=== PATIENT | female | born 1960 | race Caucasian/White ===

== ENCOUNTER 2018-09-10 19:40 | Emergency (ER) | payer BC, SELFPAY ==
[2018-09-10 19:44] VITALS: BP 107/70; PULSE 79; RESP 14; TEMP 36.8; O2SAT 98
--- NOTE | 2018-09-10 19:59 | ED.GENADUL_ITS ---
Discharge Plan Disposition Patient Disposition: HOME Condition: Good Discharge Details Chief Complaint: Orthopedic Clinical Impression: Contusion of knee, right Primary Care Provider: Myriam Benson ED Provider: Chetan Merrill Home Meds and New Rx's Prescriptions: Continue citalopram [Celexa] 10 MG tablet 10 mg PO DAILY RF: 0 Discharge Instructions Instructions: Contusion in Adults (ED) Discharge Data Discharge Physician: Chetan Merrill Medical Decision Making 58 yo female comes in with right knee pain after she states she had a mechanical fall yesterday, denies hitting her head or having loc and denies any precediing symptoms, states it was purely mechanical. She has right antierior knee pain, no evidence of tendon injury or ligamentous injury on exam. I recommended an xray to eval for fx but pt declined this at this time. She is going to f/u with her pcp if pain continues Differential Diagnosis contusion, sprain, strain HPI General Mode of arrival: ambulatory . Date/Time Provider Initiated Documentation: 09/10/18 19:41 . Limitations to Documentation: no limitations . Information obtained by: patient . History of Present Illness 58 year old F presents to the emergency department with the chief complaint of right knee pain, described as moderate, with intensity rated at 4. Quality is described as stabbing and aching, and is localized to the right and lower extremity. Patient extremity. Patient started experiencing this day(s) (1) No relieving factors improve symptom(s), No exacerbating factors reported . Patient notes no other symptoms.. Related Data Home Medications Medication Instructions Recorded Confirmed citalopram [Celexa] 10 mg PO DAILY tab-cap 04/06/17 09/10/18 Allergies Allergy/AdvReac Type Severity Reaction Status Date / Time codeine Allergy Unknown Unverified 09/10/18 19:50 tetracycline Allergy Unknown Unverified 09/10/18 19:50 General Stated Complaint: Orthopedic ANA: 4 Review of Systems Review of Systems All systems reviewed & are unremarkable except as noted in HPI and below Constitutional Denies chills and Denies fever(s) ENT Denies change in voice Cardiovascular Denies chest pain and Denies dyspnea Respiratory Denies dyspnea Gastrointestinal Denies abdominal pain, Denies nausea and Denies vomiting Musculoskeletal Denies joint swelling Integumentary/Breasts Denies rash Psychiatric Denies depression Allergic/Immunologic Reports urticaria [facility] Medical History Depression Shoulder tendinitis Social History Smoking/Tobacco Use Status: Former Tobacco Use Surgical History Colonoscopy - MAC (04/12/17) Exam Const General: no acute distress Orientation: alert HENMT Head: normal to inspection Ears: external ears normal General nose exam: external nose normal Mouth: moist mucous membranes Eyes General: appearance normal, both eyes and all related structures Neck Neck: normal visual inspection Resp Effort & Inspection: normal respiratory effort and able to speak in complete sentences Cardio Rate: regular rate Skin General skin exam: no rashes or lesions noted Neuro General: alert and oriented x3 Extrem General: normal to inspection, normal capillary refill and other (anterior right knee tendreness, full rom, no calf pain ankle pain or foot pain, able to walk with limp due to pain in knee, no ligamentous laxity on exam) Psych Mental Status: mental status grossly normal Course Vital Signs Temperature 36.8 C 09/10/18 19:44 Pulse 79 09/10/18 19:44 Respiratory Rate 14 09/10/18 19:44 Blood Pressure 107/70 09/10/18 19:44 Pulse Oximetry 98 09/10/18 19:44 Temperature 36.8 C 09/10/18 19:44 Temperature Source Skin 09/10/18 19:44 Pulse 79 09/10/18 19:44 Respiratory Rate 14 09/10/18 19:44 Respiratory Effort 09/10/18 19:53 Blood Pressure 107/70 09/10/18 19:44 Pulse Oximetry 98 09/10/18 19:44 Oxygen Delivery Method Room Air 09/10/18 19:44 Oxygen Flow Rate 0 09/10/18 19:44
== END 2018-09-10 20:21 | disposition home or self-care (01) ==
LOC: ER 20:11
PROVIDERS: Emergency Provider Emergency Medicine; PCP Nurse Practitioner Family
DX: S80.01XA Contusion of right knee, initial encounter (principal); W01.0XXA Fall on same level from slipping, tripping and stumbling without subsequent striking against object, initial encounter
CPT/HCPCS: 99282

== ENCOUNTER → 2019-03-08 15:33 | Outpatient (REF) | payer BC, SELFPAY ==
[2019-03-08 21:33] LABS: HCT 41.3 % (36.0-46.0); HGB 13.5 g/dL (12.0-15.5); Mean Corp. HGB Concentration 32.7 g/dL (32.0-36.0); Mean Corpuscular Hemoglobin 29.2 pg (27.0-33.0); Mean Corpuscular Volume 89.4 fL (80-95); Mean Platelet Volume 10.1 fL (8.0-11.0); Platelet Count 403 x1000/uL (130-400); RBC 4.62 m/cumm (4.00-5.20); RBC Distribution Width 12.3 % (11.7-14.6); White Blood Cell Count 5.16 k/cumm (4.4-10.8)
[2019-03-08 21:59] LABS: Iron 53 ug/dL (50-175); Total Iron Binding Capacity 280 ug/dL (250-450); Transferrin Sat 19 % (15-50)
[2019-03-08 22:29] LABS: ALT 30 U/L (12-78); AST 21 U/L (15-37); Anion Gap 9.9 mmol/L (3-11); BUN 17 mg/dL (7-18); CO2 30.1 mmol/L (21.0-32.0); CREATININE 0.68 mg/dL (0.55-1.02); Calcium 9.3 mg/dL (8.5-10.1); Chloride 102 mmol/L (98-107); Cholesterol 277 mg/dL (50-200); Glucose 73 mg/dL (70-100); HDL Cholesterol 62 mg/dL (40-60); LDL CHOLESTEROL 190 mg/dL (<100); Sodium 142 mmol/L (136-145); TSH (W/Ref FT4) 1.13 uIU/mL (0.358-3.74); Triglyceride 82 mg/dL (30-150); Vitamin B12 751 pg/mL (193-986)
[2019-03-09 06:12] LABS: Vitamin D 25 Total 23.6 ng/ml (30-100)
[2019-03-10 09:41] LABS: Cyclic Citrullinated Peptide <2.5 U/mL (<5.0); Rheumatoid Factor 358 IU/mL (<12.5)
[2019-03-10 12:12] LABS: ANA Interpretation Positive (NEGAT); ANA Titer Pattern SEE COMMENTS
[2019-03-14 13:19] LABS: Sm (Smith) Ab, IgG 3.4 Units (<20)
[2019-03-14 13:21] LABS: dsDNA Ab, IgG <12.3 IU/mL (<30)
== END ==
LOC: NCHCN 15:33
PROVIDERS: PCP Nurse Practitioner Family; Visit Provider Nurse Practitioner Family
DX: E04.9 Nontoxic goiter, unspecified (principal); L65.9 Nonscarring hair loss, unspecified; R53.83 Other fatigue; Z00.00 Encounter for general adult medical examination without abnormal findings; R79.89 Other specified abnormal findings of blood chemistry
CPT/HCPCS: 80048; 80061; 82306; 83721; 85027; 86200; 82607; 83540; 83550; 84443; 84450; 84460; 86038; 86225; 86235; 86431

== ENCOUNTER 2019-04-06 17:50 | Outpatient (REF) | payer BC, SELFPAY ==
[2019-04-08 12:24] LABS: Myeloperoxidase Ab IgG <0.2 U; Proteinase 3 Ab (PR3) <0.2 U
[2019-04-09 14:12] LABS: Testosterone, Total 12 ng/dL (8-60)
[2019-04-10 08:36] LABS: DHEA Sulfate 58 ug/dl (30-182)
[2019-04-10 13:47] LABS: Lyme Ab w Rflx to Lyme Confirm Negative
== END 2019-04-06 18:10 ==
LOC: NCHCN 17:50
PROVIDERS: PCP Nurse Practitioner Family; Visit Provider Nurse Practitioner Family
DX: R53.83 Other fatigue (principal); L65.9 Nonscarring hair loss, unspecified; R79.89 Other specified abnormal findings of blood chemistry
CPT/HCPCS: 82627; 84403; 82626; 83516; 86618

== ENCOUNTER 2019-05-15 01:38 | Outpatient (CLI) | payer BC, SELFPAY ==
--- NOTE | 2019-05-15 16:59 | DI.MAMMO_ITS ---
SYMPTOM/DIAGNOSIS: SCREENING, Z12.31 MAMMOGRAMS: Mammograms were interpreted according to the usual protocol including computer analysis with CAD system, tomosynthesis and C view imaging. Comparison is made with 2017. The breasts are composed of heterogeneously dense fibroglandular tissue. Breast density, Category C. No suspicious masses or suspicious microcalcifications are seen. There has been no significant change. IMPRESSION: Category 1, negative mammogram. Yearly screening mammography is recommended. [facility] ASSESSMENT OF FINDINGS: Negative. Category 1. Patient will receive a letter notifying them of these results. Bi-RADS category C. The breasts are heterogeneously dense, which may obscure small masses.
== END 2019-05-15 01:58 ==
PROVIDERS: PCP Nurse Practitioner Family; Visit Provider Nurse Practitioner Family
DX: Z12.31 Encounter for screening mammogram for malignant neoplasm of breast (principal)
CPT/HCPCS: 77063; 77067

== ENCOUNTER → 2020-03-15 09:43 | Outpatient (REF) | payer BC, SELFPAY ==
[2020-03-15 21:11] LABS: ALT 29 U/L (14-59); AST 27 U/L (15-37); Calculated LDL 220 mg/dL (<100); Cholesterol 293 mg/dL (<200); HDL Cholesterol 59 mg/dL (40-60); Triglyceride 73 mg/dL (<150)
== END ==
LOC: NCHCN 09:43
PROVIDERS: PCP Nurse Practitioner Family; Visit Provider Nurse Practitioner Family
DX: E78.5 Hyperlipidemia, unspecified (principal)
CPT/HCPCS: 80061; 84450; 84460

== ENCOUNTER 2020-04-29 10:28 | Outpatient (CLI) | payer BC, SELFPAY ==
[2020-04-30 14:07] LABS: COVID-19 RT-PCR UVMMC Result Negative (Negative)
== END 2020-04-29 10:48 ==
PROVIDERS: PCP Nurse Practitioner Family; Visit Provider Nurse Practitioner Family
DX: Z11.59 Encounter for screening for other viral diseases (principal)
CPT/HCPCS: U0003

== ENCOUNTER → 2022-11-09 02:12 | Outpatient (CLI) | payer BC, SELFPAY ==
--- NOTE | 2022-11-09 16:15 | DI.MAMMO_ITS ---
Exam(s) MAMMO SCREENING EXAM: MAMMO SCREENING CLINICAL HISTORY: SCREENING FOR BREAST CANCER Z12.39. TECHNIQUE: Bilateral full field digital CC and MLO mammographic images were obtained with 3D tomosyn thesis and utilizing computer aided detection (CAD). COMPARISON: Prior mammograms were reviewed. FINDINGS: There has been no significant change in the appearance and distribution of the fibroglandular tissue. There are no new spiculated masses nor malignant appearing microcalcification groups. There is no significant architectural distortion nor skin thickening-retraction. IMPRESSION: No radiographic evidence of malignancy. BI-RADS Category 1 - Negative Breast Density - Category C - Heterogeneously dense Breast density Category C or D implies that the patient has dense breast tissue. Dense breast tissue can make it harder to find cancer on a mammogram. Dense breast tissue is also associated with an incr eased risk of breast cancer. This information about the result of the mammogram report was provided to the patient to raise their awareness. Use this report when you speak with the patient about their risks for breast cancer, which includes their family history. At that time, you may recommend additional screening tests (Ultrasoun d or MRI) as these tests may add significant information. A negative radiographic report should not delay biopsy if a dominant or clinically suspicious mass is present. Up to ten percent of cancers are not identified on mammography. A negative report may reinforce clinical impression. Adenosis and dense breasts may obscure an underlying neoplasm. False positive reports average 6 to 10%. Patient will receive a letter notifying them of these results.
== END ==
PROVIDERS: PCP Nurse Practitioner Family; Visit Provider Nurse Practitioner Family
DX: Z12.31 Encounter for screening mammogram for malignant neoplasm of breast (principal)
CPT/HCPCS: 77063; 77067

== ENCOUNTER 2023-10-27 13:14 | Outpatient (REF) | payer BC, SELFPAY ==
[2023-10-27 14:57] LABS: HCT 40.3 % (36.0-46.0); HGB 13.1 g/dL (11.2-15.7); MCH 29.4 pg (27.0-33.0); MCHC 32.5 % (32.0-36.0); MCV 90 fL (80-95); MPV 10.5 fL (8.0-11.0); Platelet Count 348 10^3/uL (130-400); RBC 4.46 10^6/uL (3.93-5.22); RDW 11.9 % (11.7-14.6); RDW-SD 39.6 fL; WBC 6.56 10^3/uL (4.4-10.8)
[2023-10-27 15:20] LABS: ALT 46 U/L (14-59); AST 28 U/L (15-37); Albumin 3.8 g/dL (3.4-5.0); Alkaline Phosphatase 89 U/L (46-116); Anion Gap 8.1 mmol/L (3-11); BUN 17 mg/dL (7-18); Bilirubin, Total 0.3 mg/dL (0.2-1.0); CO2 29.9 mmol/L (21.0-32.0); CREATININE 0.6 mg/dL (0.55-1.02); Calcium 9.2 mg/dL (8.5-10.1); Calculated LDL 88 mg/dL (<100); Chloride 104 mmol/L (98-107); Cholesterol 157 mg/dL (<200); Estimated GFR 100.17 (mL/min/1.73m2); Glucose 87 mg/dL (74-106); HDL Cholesterol 61 mg/dL (40-60); Potassium 4.1 mmol/L (3.5-5.1); Sodium 142 mmol/L (136-145); Total Protein 7.3 g/dL (6.4-8.2); Triglyceride 43 mg/dL (<150)
== END 2023-10-27 13:15 | disposition home or self-care (01) ==
LOC: NCHCN 13:14
PROVIDERS: PCP Nurse Practitioner Family; Visit Provider Nurse Practitioner Family
DX: Z00.00 Encounter for general adult medical examination without abnormal findings (principal)
CPT/HCPCS: 80053; 80061; 85027

== ENCOUNTER → 2024-06-30 16:26 | Outpatient (CLI) | payer MEDICARE, SELFPAY ==
--- NOTE | 2024-06-30 | DI.RAD_ITS ---
Exam(s) XR HIP PELVIS ADULT BL EXAM: XR HIP PELVIS ADULT BL CLINICAL HISTORY: HIP PAIN M25.559. TECHNIQUE: 2D digital imaging was performed of the pelvis and bilateral hips. Three images were obt ained. AP pelvis and lateral views of both hips were obtained. COMPARISON: No exams were available for comparison FINDINGS: BONES: No acute fracture is present. No bony destructive lesion is seen. JOINTS: No dislocation present. In the right hip there is mild joint space narrowing. Osteophytes ar e seen in both the acetabulum and the femoral head. In the left hip there is mild joint space narrow ing and spurring present. SOFT TISSUE: Normal. IMPRESSION: Degenerative changes of the hips, right greater than left. DATA REPOSITORY: RADIATION DOSE DELIVERED:
--- NOTE | 2024-06-30 | DI.RAD_ITS ---
Exam(s) XR LUMBAR SPINE COMPLETE EXAM: XR LUMBAR SPINE COMPLETE CLINICAL HISTORY: LOW BACK PAIN M54.50. TECHNIQUE: 2D digital imaging was performed of the lumbar spine. Five images were obtained. AP, la teral, right oblique, left oblique and L5-S1 spot views were obtained. COMPARISON: No exams were available for comparison FINDINGS: BONES: No fracture or destructive lesion. There are endplate osteophytes from L3-4 through L5-S1. The re are mild degenerative changes of the facets at L5-S1. DISKS: Disc space narrowing and vacuum discs are seen at L4-5 and L5-S1. ALIGNMENT: Lumbar spinal alignment is within normal limits. No spondylolysis or spondylolisthesis. SOFT TISSUE: Normal. IMPRESSION: Moderate degenerative changes seen at L4-5 and L5-S1. DATA REPOSITORY: RADIATION DOSE DELIVERED:
== END ==
PROVIDERS: PCP Nurse Practitioner Family; Visit Provider Nurse Practitioner Family
DX: M25.551 Pain in right hip (principal); M25.552 Pain in left hip; M54.50 Low back pain, unspecified; M16.11 Unilateral primary osteoarthritis, right hip; M16.12 Unilateral primary osteoarthritis, left hip; M51.37 Other intervertebral disc degeneration, lumbosacral region
CPT/HCPCS: 73521; 72110

== ENCOUNTER → 2024-07-13 08:54 | Outpatient (BNVA) | payer MEDICARE, SELFPAY | PROVIDERS: PCP Nurse Practitioner Family; Referring Provider Nurse Practitioner Family; Visit Provider Student in an Organized Health Care Education/Training Program | DX: M16.0 Bilateral primary osteoarthritis of hip (principal); M25.551 Pain in right hip | CPT/HCPCS: 99203 ==

== ENCOUNTER 2024-09-14 10:11 | Emergency (ER) | payer MEDICARE, SELFPAY ==
[2024-09-14 10:14] VITALS: BP 109/63; PULSE 82; RESP 18; TEMP 36.4; O2SAT 94
--- NOTE | 2024-09-14 10:28 | ED.GENADUL_ITS ---
Discharge Plan Disposition Patient Disposition: Home Discharge Details Clinical Impression: COVID-19 virus infection Primary Care Provider: Lolis Zuñiga ED Provider: Brain Mancera Home Meds and New Rx's Prescriptions: Continued gabapentin 100 mg capsule 100 mg PO BID rosuvastatin 40 mg tablet 40 mg PO DAILY citalopram [Celexa] 10 mg tablet 20 mg PO DAILY Discharge Instructions Instructions: COVID-19 ED Additional Instructions: You are seen in the emergency department for your weakness and COVID infection. Your oxygen saturation is reassuring. Based on the duration of times since your symptoms began there is no indication for any antiviral treatments. Please follow-up with primary care provider next week. Please return to the emergency department if you develop vomiting that does not stop or if you pass out. Discharge Data Discharge Date/Time-TO BE ENTERED AT DEPARTURE: 09/14/24 12:56 HPI General Date/Time Provider Initiated Documentation: 09/14/24 10:28 . HPI Narrative: MDM This is an overall very well appearing normothermic and not tachycardic 64-year-old female with recent COVID test but no evidence of acute respiratory failure no hypoxia to suggest benefit from dexamethasone. Patient appears quite well-hydrated however will obtain labs to ensure that she is not dehydrated. Will connect with care management as she is reportedly had difficulty making food since she feels weak at home. Will ensure that she can ambulate and if she has difficulty ambulating will reach out to physical therapy. Given no chest pain no tachycardia and no hypoxia my suspicion is low for DVT so I did not send a D-dimer. Clear lungs and equal breath sounds so my suspicion for superimposed bacterial pneumonia is low however given duration of time since symptoms began will obtain a portable chest x-ray. No chest pain to suggest ACS so did not obtain ECG. No trauma and equal breath sounds without pneumothorax. Soft nontender abdomen so I am not concern for any intra-abdominal infection such as appendicitis or diverticulitis. No pain or proportion to suggest necrotizing soft tissue infection. 11:04 AM Patient was able to ambulate in the emergency department so we will defer physical therapy consult. 12:23 PM CBC lacks anemia thrombocytopenia and leukocytosis. Reassuring comprehensive metabolic panel with no acute electrolyte abnormalities. No SNEHAL. Chest x-ray with no acute cardiopulmonary process per radiology. Linda from [facility] is meeting with patient. 12:30 PM I spoke with Vee from care management who met with the patient. Patient is eating food. Vee shared that she had access to food. I advised patient of her reassuring laboratory evaluation we discussed return indications including inability to tolerate p.o. any shortness of breath or syncope. I advised PCP follow-up next week. She understood her return indications and was discharged with empiric trial of expectant outpatient management. HPI This is a previously healthy 64-year-old female with recent COVID-positive test. Patient reports that she initially tested positive for COVID 11 days ago. She reports that she received 2 vaccines originally against COVID. She reports she has had difficulty eating and drinking as she lives alone. She has been attempting treatment at home with [facility]. She denies any abdominal pain. She denies chest pain. She is reports that she has had some sweats at night but no unintentional weight loss. She denies routine tobacco, ethanol, and illicits. She has not been nauseous nor vomiting. She denies abdominal pain. Exam General: Well-appearing in no acute distress speaking in complete sentences. Head: Normocephalic, atraumatic. Eye: Extraocular eye movements intact. No conjunctival injection. No scleral icterus. Ear, nose, mouth, throat: Grossly normal inspection. Normal voice, handling secretions normally. Neck: Trachea midline. Cardiovascular: Well-perfused distal extremities. Regular rate and rhythm Respiratory: Nonlabored respiration. Clear lungs bilaterally Gastrointestinal: Nondistended abdomen. Soft nontender. No rebound. No guarding. Musculoskeletal: No edema. Moving all 4 extremities spontaneously. Skin: Normal for age and race, grossly normal temperature and turgor. No acute rash. Neurologic: Alert and appropriate, no apparent acute deficits. GCS 15. Psychiatric: Mood and manner are appropriate. Grooming and personal hygiene are appropriate. Related Data Home Medications ?Medication ?Instructions ?Recorded ?Confirmed citalopram 10 mg tablet (Celexa) 20 mg PO DAILY 07/13/24 09/14/24 gabapentin 100 mg capsule 100 mg PO BID 07/13/24 09/14/24 rosuvastatin 40 mg tablet 40 mg PO DAILY 07/13/24 09/14/24 Allergies Allergy/AdvReac Type Severity Reaction Status Date / Time codeine Allergy Unknown Unknown Unverified 09/14/24 10:22 tetracycline Allergy Unknown Unknown Unverified 09/14/24 10:22 General Stated Complaint: GenMedical ANA: 3 Course Vital Signs Vital signs: Vital Signs Temperature 36.4 C 09/14/24 10:14 Pulse 82 09/14/24 10:14 Respiratory Rate 18 09/14/24 10:14 Blood Pressure 109/63 09/14/24 10:14 Pulse Oximetry 94 09/14/24 10:14 Temperature 36.4 C 09/14/24 10:14 Temperature Source Tympanic 09/14/24 10:14 Pulse 82 09/14/24 10:14 Respiratory Rate 18 09/14/24 10:14 Blood Pressure 109/63 09/14/24 10:14 Blood Pressure Position Supine 09/14/24 10:14 Pulse Oximetry 94 09/14/24 10:14 Oxygen Delivery Method Room Air 09/14/24 10:14 Oxygen Flow Rate 0 09/14/24 10:14 Pain Level 0 09/14/24 10:14 Medical Decision Making Quality:SDOH Health Related Social Needs: No Data to Display PFSH All Active Problems (Updated 09/14/24 @ 12:24 by Brain Mancera MD) COVID-19 virus infection (Acute) Bilateral primary osteoarthritis of hip (Acute) Medical History (Updated 09/14/24 @ 12:24 by Brain Mancera MD) Depression Shoulder tendinitis Surgical History (Updated 04/12/17 @ 10:27 by Christina Burr) Colonoscopy - MAC (04/12/17) Social History Smoking/Tobacco Use Status: Former Tobacco Use Smoking risk assessment performed?: Yes Drug use: Never Do you feel safe in your relationship?: Yes
[2024-09-14 11:01] VITALS: RESP 16
--- NOTE | 2024-09-14 11:20 | DI.RAD_ITS ---
Exam(s) XR CHEST 2V PA LATERAL EXAM: XR CHEST 2V PA LATERAL CLINICAL HISTORY: Weakness TECHNIQUE: 2D digital imaging was performed of the chest. Two images were obtained. PA and lateral views were obtained. COMPARISON: No exams were available for comparison FINDINGS: MEDIASTINUM: Normal. HEART: Normal. PULMONARY VASCULATURE: Normal. LUNGS: Clear. PLEURAL SPACE: No pleural effusion or pneumothorax. BONE:Within normal limits for the patient's age. OTHER FINDINGS:Normal. IMPRESSION: No acute pulmonary findings. DATA REPOSITORY: RADIATION DOSE DELIVERED:
[2024-09-14 11:25] LABS: Abs Immature Grans 0.01 10^3/uL (0.0-0.06); Absolute Basophil Count 0.03 10^3/uL (0.0-0.2); Absolute Eosinophil Count 0.11 10^3/uL (0.0-0.7); Absolute Monocyte Count 0.49 10^3/uL (0.1-0.8); Absolute Neutrophil Count 2.28 10^3/uL (1.2-6.7); Basophils % 0.6 %; Eosinophils % 2.3 %; HCT 45.2 % (36.0-46.0); HGB 14.6 g/dL (11.2-15.7); Immature Grans % 0.2 %; Lymphocytes % 39.4 %; MCH 29.3 pg (27.0-33.0); MCHC 32.3 % (32.0-36.0); MCV 91 fL (80-95); MPV 9.6 fL (8.0-11.0); Monocytes % 10.2 %; Neutrophils % 47.3 %; Platelet Count 389 10^3/uL (130-400); RBC 4.99 10^6/uL (3.93-5.22); RDW 11.9 % (11.7-14.6); RDW-SD 39.4 fL; WBC 4.82 10^3/uL (4.4-10.8)
[2024-09-14 12:00] LABS: Anion Gap 8.8 mmol/L (3-11); BUN 15 mg/dL (7-18); CO2 30.2 mmol/L (21.0-32.0); CREATININE 0.6 mg/dL (0.55-1.02); Calcium 9.3 mg/dL (8.5-10.1); Chloride 106 mmol/L (98-107); Estimated GFR 99.55 (mL/min/1.73m2); Glucose 80 mg/dL (74-106); Potassium 4.5 mmol/L (3.5-5.1); Sodium 145 mmol/L (136-145)
[2024-09-14 12:40] VITALS: BP 144/77; PULSE 77; RESP 18; O2SAT 99
== END 2024-09-14 12:56 | disposition home or self-care (01) ==
PROVIDERS: Emergency Provider Emergency Medicine; PCP Nurse Practitioner Family
DX: U07.1 COVID-19 (principal); Z87.891 Personal history of nicotine dependence
CPT/HCPCS: 36415; 80048; 99284; 71046; 85025

== ENCOUNTER 2025-01-01 01:14 | Outpatient (CLI) | payer OTHER, SELFPAY ==
[2025-01-01 16:28] LABS: HCT 39.4 % (36.0-46.0); HGB 12.7 g/dL (11.2-15.7); MCH 29.3 pg (27.0-33.0); MCHC 32.2 % (32.0-36.0); MCV 91 fL (80-95); MPV 9.2 fL (8.0-11.0); Platelet Count 380 10^3/uL (130-400); RBC 4.34 10^6/uL (3.93-5.22); RDW 12.2 % (11.7-14.6); RDW-SD 40.6 fL; WBC 6.21 10^3/uL (4.4-10.8)
[2025-01-01 17:03] LABS: Anion Gap 4.8 mmol/L (3-11); BUN 21 mg/dL (7-18); CO2 31.2 mmol/L (21.0-32.0); CREATININE 0.9 mg/dL (0.55-1.02); Calcium 9.3 mg/dL (8.5-10.1); Chloride 106 mmol/L (98-107); Estimated GFR 70.95 (mL/min/1.73m2); Glucose 92 mg/dL (74-106); Potassium 3.9 mmol/L (3.5-5.1); Sodium 142 mmol/L (136-145)
== END 2025-01-01 01:15 | disposition home or self-care (01) ==
LOC: LBO 01:14
PROVIDERS: PCP Nurse Practitioner Family; Visit Provider Student in an Organized Health Care Education/Training Program
DX: M16.11 Unilateral primary osteoarthritis, right hip (principal); Z01.818 Encounter for other preprocedural examination
CPT/HCPCS: 36415; 80048; 85027

== ENCOUNTER 2025-01-01 15:27 | Outpatient (CLI) | payer OTHER, SELFPAY ==
--- NOTE | 2025-01-01 16:02 | DI.RAD_ITS ---
Exam(s) XR PELVIS AP EXAM: XR PELVIS AP CLINICAL HISTORY: PRE OP RIGHT CHIDI. TECHNIQUE: 2D digital imaging was performed.One images were obtained. COMPARISON: CR XR HIP PELVIS ADULT BL from 06/30/2024 FINDINGS: BONES: No acute fracture is present. No bony destructive lesion is seen. JOINTS: No dislocation present. There are degenerative changes seen in the hips bilaterally character ized by joint space narrowing and osteophytes. The findings are most marked in the right hip. The s acroiliac joints are intact as is the symphysis pubis. SOFT TISSUE: Normal. IMPRESSION: Degenerative changes in the hips, right greater than left. DATA REPOSITORY: RADIATION DOSE DELIVERED:
== END 2025-01-01 15:28 | disposition home or self-care (01) ==
LOC: DIORS 15:27
PROVIDERS: PCP Nurse Practitioner Family; Referring Provider Nurse Practitioner Family; Visit Provider Physician Assistant
DX: M16.0 Bilateral primary osteoarthritis of hip (principal)
CPT/HCPCS: 72170

== ENCOUNTER 2025-05-07 02:22 | Outpatient (CLI) | payer MEDICARE, SELFPAY ==
[2025-05-07 16:52] LABS: HGB 12.2 g/dL (11.2-15.7); MCH 29.1 pg (27.0-33.0); MCHC 32.1 % (32.0-36.0); MCV 91 fL (80-95); Platelet Count 411 10^3/uL (130-400); RBC 4.19 10^6/uL (3.93-5.22); RDW 11.9 % (11.7-14.6); RDW-SD 39.2 fL; WBC 6.78 10^3/uL (4.4-10.8)
[2025-05-07 17:38] LABS: Anion Gap 4.7 mmol/L (3-11); BUN 23 mg/dL (7-18); CO2 31.3 mmol/L (21.0-32.0); CREATININE 0.9 mg/dL (0.55-1.02); Chloride 104 mmol/L (98-107); Estimated GFR 70.95 (mL/min/1.73m2); Glucose 104 mg/dL (74-106); Potassium 4.4 mmol/L (3.5-5.1); Sodium 140 mmol/L (136-145)
== END 2025-05-07 02:23 | disposition home or self-care (01) ==
LOC: LBO 02:22
PROVIDERS: PCP Nurse Practitioner Family; Visit Provider Student in an Organized Health Care Education/Training Program
DX: M16.11 Unilateral primary osteoarthritis, right hip (principal); Z01.818 Encounter for other preprocedural examination
CPT/HCPCS: 36415; 80048; 85027

== ENCOUNTER 2025-05-15 05:51 | Day surgery (SDC) | payer MEDICARE, SELFPAY ==
[2025-05-15] VITALS (27 sets, daily range): BP systolic 86–139; BP diastolic 39–75; PULSE 59–79; RESP 7–27; TEMP 36.1–36.6; O2SAT 94–100; BMI 23.8
[2025-05-15] MEDS: Celecoxib 200 MG CAP 400 MG PO (06:35)
[2025-05-15] MEDS: Acetaminophen 500 MG TAB 1000 MG PO (06:35)
--- NOTE | 2025-05-15 06:35 | W.ANESPRE ---
General Info Date of Service Date Performed: 05/15/25 Height: 4 ft 9 in Weight: 49.9 kg Body Mass Index (BMI): 23.8 Surgical Procedure: Operation Date: 05/15/25 07:50 Proposed Procedure Side Surgeon p Hip Total Hip Anterior Right Festus Wynne MD Meds Allergies and Home Medications Allergies Allergy/AdvReac Type Severity Reaction Status Date / Time codeine Allergy Unknown Unknown Verified 05/15/25 06:18 tetracycline Allergy Unknown Unknown Verified 05/15/25 06:18 Home Medication ?Medication ?Instructions ?Recorded rosuvastatin 40 mg tablet 40 mg PO DAILY 07/13/24 celecoxib 200 mg capsule 200 mg PO DAILY 01/01/25 citalopram 40 mg tablet (Celexa) 40 mg PO DAILY 01/02/25 biotin 05/15/25 Current Visit Medications: Current Medications Generic Name Dose Route Start Last Admin Trade Name Freq PRN Reason Stop Dose Admin Acetaminophen 1,000 mg 05/15/25 06:00 Acetaminophen 500 Mg Tab PO 05/15/25 23:59 PREOP GINETTE Celecoxib 400 mg 05/15/25 06:00 Celecoxib 200 Mg Cap PO 05/15/25 23:59 PREOP GINETTE Ringer's Solution 1,000 mls @ 80 mls/hr 05/15/25 06:00 IV 05/15/25 23:59 INFUSION GINETTE Cefazolin Sodium/Dextrose 2 gm in 50 mls @ 100 mls/hr 05/15/25 06:00 Ancef Duplex IVPB 05/15/25 23:59 PREOP GINETTE Tranexamic Acid/Sodium Chloride 1,000 mg in 100 mls @ 600 mls/hr 05/15/25 06:00 IVPB 05/15/25 23:59 PREOP GINETTE IV Miscellaneous Supplies 1 each 05/15/25 06:00 Iv Access IV 05/15/25 23:59 DIRECTED GINETTE Sodium Chloride 0 ml 05/15/25 06:00 Normal Saline Flush 10 Ml Syr IV 05/15/25 23:59 PRN PRN Sodium Chloride 0 ml 05/15/25 06:00 Normal Saline 10 Ml Vial IJ 05/15/25 23:59 DIRECTED PRN Sterile Water 0 ml 05/15/25 06:00 Water,Injection,Sterile 10 Ml Vial IJ 05/15/25 23:59 DIRECTED PRN PFSH Active Problems Active Problems: Problem Status Onset Code Hyperlipidemia Acute E78.5 Anxiety Chronic F41.9 Degenerative joint disease of right hip Chronic M16.11 COVID-19 virus infection Acute U07.1 Bilateral primary osteoarthritis of hip Acute M16.0 Medical History Medical History Depression Shoulder tendinitis Surgical History Surgical History Status post tonsillectomy Colonoscopy - MAC (04/12/17) Tobacco Smoking/Tobacco Use Status: Former Tobacco Use Passive smoking exposure: No Alcohol Alcohol Intake: current Alcohol intake frequency: holidays/special occasions only Alcohol type: hard liquor Substance Use Substance use: Never Substance use type: does not use Details: alcohol: t-1, half a glass Vital Signs and Lab Results Vital Signs Most Recent Vital Signs in EMR: Most Recent Vital Signs Temp Pulse Resp BP Pulse Ox 36.6 C 77 16 133/47 L 100 05/15/25 06:23 05/15/25 06:23 05/15/25 06:23 05/15/25 06:23 05/15/25 06:23 Lab Results Complete Blood Count: WBC, (4.4-10.8) 6.78 10^3/uL 05/07/25, 16:35 RBC, (3.93-5.22) 4.19 10^6/uL 05/07/25, 16:35 Hgb, (11.2-15.7) 12.2 g/dL 05/07/25, 16:35 Hct, (36.0-46.0) 38.0 % 05/07/25, 16:35 Plt Count, (130-400) 411 10^3/uL H 05/07/25, 16:35 Complete Metabolic Panel: Sodium, (136-145) 140 mmol/L 05/07/25, 16:35 Potassium, (3.5-5.1) 4.4 mmol/L 05/07/25, 16:35 Chloride, (98-107) 104 mmol/L 05/07/25, 16:35 Carbon Dioxide, (21.0-32.0) 31.3 mmol/L 05/07/25, 16:35 BUN, (7-18) 23 mg/dL H 05/07/25, 16:35 Creatinine, (0.55-1.02) 0.9 mg/dL 05/07/25, 16:35 Est GFR (CKD-EPI 2020), (mL/min/1.73m2) 70.95 05/07/25, 16:35 Calcium, (8.5-10.1) 9.0 mg/dL 05/07/25, 16:35 Glucose, (74-106) 104 mg/dL 05/07/25, 16:35 Anesthesia Assessment and Plan Anesthesia History Personal History: No History of Anesthesia Complications Family History: Family History Unknown Exercise Tolerance Exercise Tolerance: Metabolic Equivalents>4 Pertinent Negatives Pertinent Negatives: No Symptoms of GERD, No Major Cardiovascular Symptoms or Complaints, No Major Pulmonary Symptoms or Complaints and No History of CVA/TIA Cardiac & Pulmonary Exam Cardiac Exam: Normal S1/S2 Heart Sounds Pulmonary Exam: Clear Bilateral Breath Sounds Implantable Cardiac Device Does patient have a Pacemaker or an ICD?: No Airway Exam Known Difficult Airway: No Mallampati Class: 2 Mouth Opening: Normal (> 3cm) Thyromental Distance: Greater than 3 cm Neck Range of Motion: Full ROM Neck Circumference: Normal Teeth Condition: Normal Dentition ASA Classification ASA Score: ASA 2 Emergency Case?: No NPO Status NPO Status: NPO Clears >2 hours, Solids >8 hours Anesthesia Plan Resuscitation Status: Full Code Anesthesia Technique: Spinal Anesthesia Airway Planned: Natural Airway Monitors Used: Standard Monitors
--- NOTE | 2025-05-15 07:00 | DI.RAD_ITS ---
Exam(s) XR HIP RT IN OR EXAM: XR HIP RT IN OR CLINICAL HISTORY: primary osteoarthritis of right hip TECHNIQUE: 2D and realtime digital imaging was performed. CONTRAST MATERIAL: Refer to procedure report. COMPARISON: CR XR PELVIS AP from 01/01/2025 FINDINGS: Fluoroscopy was provided for Dr. Wynne during the performance of a right total hip arthroplasty. Please refer to the procedure report for complete details. Ka,r=2.84 mGy IMPRESSION: RADIATION DOSE DELIVERED: 0.0 0.0 0
--- NOTE | 2025-05-15 07:05 | W.PM.DSUDISC ---
Date of service: 05/15/25 Discharge Plan Disposition Patient Disposition: Home Condition: Good Discharge Details Reason For Visit: Right hip DJD Attending Provider: Festus Wynne Primary Care Provider: Lolis Zuñiga Home Meds and New Rx's Prescriptions: New celecoxib [Celebrex] 200 mg capsule 200 mg PO BID PRNQty: 60 0RF Rx Instructions: Take one tablet twice daily for pain and inflammation aspirin 81 mg tablet,delayed release (DR/EC) 81 mg PO BID 30 Days Qty: 60 0RF tramadol 50 mg tablet 50 mg PO Q6H PRN (Reason: severe postoperative pain) Qty: 12 0RF Rx Instructions: Take one tablet up to every 4 hours as needed for severe pain acetaminophen 500 mg tablet 1,000 mg PO Q8H PRN Qty: 90 0RF Rx Instructions: Take two tablets up to every 8 hours as needed for pain pantoprazole 40 mg tablet,delayed release (DR/EC) 40 mg PO DAILY Qty: 14 0RF dexamethasone 4 mg tablet 4 mg PO DAILY Qty: 2 0RF Rx Instructions: Take one tablet once daily for two days docusate sodium [Colace] 100 mg capsule 100 mg PO BID Qty: 28 0RF Continued rosuvastatin 40 mg tablet 40 mg PO DAILY citalopram [Celexa] 40 mg tablet 40 mg PO DAILY biotin Discontinued celecoxib 200 mg capsule 200 mg PO DAILY Discharge Instructions Additional Instructions: Total Hip Discharge Instructions Activity: The most important activity is to walk. You should try to take short walks a few times a day. You have no restrictions on movement or positioning, but do not try to force what you do. You will find some stiffness and weakness with hip flexion (lifting your knee). Do not try to strengthen this too early, continue to practice walking and stairs and this will come. - Outpatient physical therapy can be helpful to help return you to a normal gait and improve your flexibility and strength. This can start around 2 weeks. For some patients, it?s not necessary. Usually this is determined at the time of discharge or at the first post-operative visit. - You should wear the SOREN hose on both legs for 2 weeks. Dressing: Keep the surgical dressing in place for at least one week. After the first week it may be removed and replace with light gauze and tape or nothing. It may get wet after 3 days but avoid soaking the dressing. If it gets wet, just lightly pat dry. It is important to always keep some gauze between skin folds, especially when you are sitting. Spend some time with the wound exposed when you are lying flat as the incision does wrinkle onto itself. Medications: - You should take Tylenol and an anti-inflammatory Celebrex as your primary pain control medications. If the Celebrex is too expensive or not covered, please call the office for another alternative (Advil/Ibuprofen or Naproxen/Aleve). - You have been prescribed a stronger pain medication Tramadol for breakthrough pain, take as needed as prescribed. - You have also been prescribed a stomach acid reduction agent Pantoprozole to help reduce stomach acid and reflux. - You have also been prescribed Decadron to help with post-operative nausea and pain. You will take this for two days starting tomorrow. - You will be taking Aspirin 81mg twice a day for DVT prevention unless instructed otherwise. - If you have constipation you should take Colace (which has been prescribed) or Miralax (which is available [id number]). It takes most people 3-4 days to have a bowel movement. Follow-up: 2 weeks If you have any acute concerns or questions, please do not hesitate to contact the office at [phone]. You may contact Dr. Wynne with any questions after hours through the hospital at [phone] or on his cell phone at [phone]. Referrals: Festus Wynne MD [ [facility] STAFF PHYSICIAN, Orthopaedic Surgical] Equipment/Supplies: Walker Activity:: Elevate Remove Dressings/Wound Care:: Do Not Remove Shower/Bathe:: Cover Diet:: As Tolerated Discharge Orders Discharge Orders: Discharge Order (Routine); Ordered 05/15/25 Ordered By: Cristal Florez
[2025-05-15] MEDS: Lactated Ringers 1,000 ML 80 ML IV (07:10)
[2025-05-15] MEDS: ceFAZolin 2 GM/50 ML BAG IVPB (07:55)
[2025-05-15] MEDS: TRANEXAMIC ACID/SOD. CHL. 1,000 MG/100 ML BAG 600 MG IVPB (08:02)
[2025-05-15] MEDS: traMADol 50 MG TAB PO (10:59)
[2025-05-15] MEDS: Tranexamic Acid 650 MG TAB 1300 MG PO (11:15)
--- NOTE | 2025-05-15 11:44 | ROE_ITS ---
Operative Note Operative Note PRE-OP DIAGNOSIS: Right Hip Osteoarthritis POST-OP DIAGNOSIS: same PROCEDURE: Right Anterior Total Hip Arthroplasty with Intraoperative Navigation SURGEON: Festus Wynne DIETARY TECH: Cristal Florez ANESTHESIA TYPE: Spinal Refer to Anesthesia Record ESTIMATED BLOOD LOSS: 200 PATHOLOGY: none sent TOURNIQUET TIME: 0 COMPLICATIONS: None Patient was transported to: PACU Patient's condition: stable Implants: 1. Depuy [place] Acetabular Component, 48mm 2. Depuy Acetabular Liner, [id number] 3. Depuy Actis Standard Collared Femoral Stem, Size 2 4. Depuy Altrx Ceramic Femoral Head, Size 32+5mm Indications: I have seen Pamela in clinic for symptoms of hip arthritis, confirmed with radiographic findings. She has exhausted nonoperative methods and was having significant limitations in daily function and desired better function and less pain. I discussed the technical details of a hip replacement. I explained the risks of the procedure to include, but not limited to, bleeding, infection, pain, stiffness, fracture, damage to nerves and vessels, damage to muscles and tendons, loosening, instability, leg length inequality, need for repeat procedure, blood clot and cardiopulmonary demise. Despite these risks, Pamela elected to proceed. Findings: There was significant signs of arthritis throughout the hip with osteophytes of the head and neck junction as well as some flattening of the femoral head and loss of cartilage of the supra femoral head in the weightbearing portion of the acetabulum. Procedure Description: Pamela was greeted in the preoperative holding area where the correct side was identified and marked. The consent was reviewed with the patient and signed. The history and physical was updated. All questions were answered. She was taken back to the operating room. A spinal anesthestic was then administered. The feet were wrapped with cast padding and Coban and then placed into the boot liners and then into the boots. Care was taken to protect the skin and make sure the heels were fully down and the boots were stable. The patient was then positioned onto the HANA table. Both legs were held in a neutral position. SCDs were applied. The patient was then slid down onto a peroneal post. Prophylactic antibiotics in the form of Cefazolin were administered. 1g of Tranxemic Acid was given intravenously within 30 minutes of incision. The right leg was then prepped with Chloraprep and draped in a standard fashion. A second prep with Chloraprep was performed prior to placement of a shower-curtain type drape with Iodine impregnated skin protection . A timeout to confirm correct identity, side and site, procedure, allergies, anesthesia, and medical concerns was performed. An obliquely oriented incision was made starting lateral to the ASIS and running distal over the Tensor Fascia Lizzie (TFL) muscle belly toward the fibular head, approximately 10cm. The skin and soft tissue was dissected sharply, through El?s fascia, and to the fascia of the TFL. With the fascia and superior border of the IT band identified, the fascia was incised with a new knife just above any perforators from the IT band. The TFL muscle belly was bluntly disse cted away from the fascia and moved laterally. The fat between TFL and rectus was identified to ensure the dissection was not within the TFL. Blunt dissection created space between abductors and the capsule and retractor was placed over the lateral femoral neck. The fibers of the rectus femoris tendon were identified and these were freed from the anterior capsule. A second cobra retractor was placed around the medial femoral neck. The TFL was further retracted laterally to show the deep fascia. Careful dissection through this layer identified three main crossing vessels of the lateral femoral circumflex. These were cauterized in multiple locations and then cut without any noticeable bleeding. The TFL was further released bluntly from the deep fascia to expose anterior hip capsule and fat The soft tissue orthopaedic retractor was then placed beneath the TFL and against sartorius and medial soft tissues to protect and retract the soft tissues. A T-capsulotomy was then performed starting at the superior lateral acetabulum and moving distally to the intertrochanteric ridge. These capsular flaps were tagged with a No. 1 Vicryl and elevated from within. The capsular flaps were released to the shoulder of the lateral neck and to the lesser trochanter to give excellent visualization of the proximal femur. A neck osteotomy was performed using an oscillating saw based on preoperative templates. This cut started in the shoulder and of the lateral neck and exited medially. The saw was at all times directed medially to avoid injury to the greater trochanter. Gross traction was applied to the leg and the osteotomy opened. The femoral head was removed with a corkscrew, making sure to protect the TFL on its exit. Traction was released after head removal. This was m easured on the back table to determine the starting reamer size. Portions of the rectus obscuring visualization were minimally elevated off the superior acetabulum. An anterior retractor was placed over the anterior wall between capsule and labrum and attached to the Gripper retraction system. The femur was rotated to 90 degrees and medial capsule was fully released until the lesser trochanter was palpable and visible; the femur was returned to 30 degrees. A posterior retractor was placed similarly between capsule and labrum. This provided excellent visualization. The contents of the cotyloid fossa were removed with electrocautery and the labrum was removed with a knife. There was a notable floor osteophyte. There was significant chondromalacia of the superior acetabulum. Acetabular reaming began with a 44mm reamer. This first reaming was directed anterior to posterior and medial to get down to the true floor. This was inspected and reamed until the true floor was reached. The anterior retractor was then released and entry and exit was provided by traction on the capsular flaps. I then reamed sequentially up to a 48mm reamer where good fit was obtained. The larger reamers were oriented based on anatomical reference of the anterior and lateral lyon to ensure proper abduction and anteversion. Positioning and size was confirmed with the fluoroscopy. A 48mm Depuy [place] acetabular component was selected. The acetabulum was reamed around the periphery with the selected acetabular size to prevent a rim fit. The deep tissues were irrigated. The acetabular component was then impacted in a position of about 40-45 degrees of abduction and 15-20 degrees of anteversion, using the patient?s anatomy as the ultimate landmark. Fluoroscopy was used to confirm this. There was excellent plastic and reconstructive surgeon of the acetabular component and the inserting handle was removed. The acetabular liner, Depuy [id number] polyethylene liner, was inserted and lined up with the tines of the acetabular component. There was no soft tissue interposition. The liner was then impacted into position and confirmed to be well-seated. A portion of the cecilio-articular cocktail was then injected around the acetabulum into the capsule and periosteum. This cocktail consisted of 123mg of Ropivacaine, 0.25mg of Epinephrine, 0.04mg of Clonidine, and 15mg of Ketorolac, diluted to 50cc. The leg was rotated to 120 degrees. Any remaining medial capsule was released until the lesser trochanter was easily palpable. A retractor was placed medially. The lateral capsule was further released into the shoulder to allow access to the greater trochanter. A Ramirez retractor was placed over the greater trochanter which allowed the trochanter to flip in front of the capsule for excellent exposure. The leg was brought down into maximal extension and 20 degrees of adduction while ensuring there was no impingement on the acetabulum. Any remnant capsule within the trochanter was released. Piriformis and obturator externis were identified and protected. There was excellent access to the proximal femur. The lateral neck remnant was removed with a rongeur. A blunt canal probe was used to identify the canal and trajectory for later broaching. A box osteotome initiated the broach course. A small curved rasp and a curved curette were used to work laterally. Broaching then began with a starter Actis broach. This was inserted manually around the trochanter and into the canal before mallet blows. The broach was seated to a few millimeters below the cut level based on the neck cut and the preoperative template. Sequential broaching was continued with the [employer] pneumatic broaching device until a tight fit was obtained with good rotational control of the femur. A trial standard neck was inserted along with a +1 trial head. The leg was brought out of extension and adduction and then reduced with traction and internal rotation. The leg was stable anteriorly in a position of 30 degrees of extension and 90 degrees of external rotation. Fluoroscopy was used to ensure there was no fracture and the stem was seated well. Leg lengths were checked with an AP pelvis and pelvic reference points. Sensopia navigation system was used to confirm appropriate positioning and leg length and offset. The stem was advanced approximately 3 to 4 mm and a +5 mm head was utilized. Once content with the desired offset and leg lengths, the leg was brought back into extension, external rotation and adduction. The periosteum and surrounding tissue was injected with remaining portion of the cecilio-articular cocktail. The proximal femur was irrigated as well as the deep tissues. The [employer] Actis standard collared stem, size 2, was then manually inserted into the proximal femur making sure to control rotation. It was then malleted into position with light blows, giving breaks to allow bone expansion and decrease risk of fracture. The selected Depuy Altrx Ceramic Head, size 32+5mm, was then placed onto the clean and dry trunnion and secured with impaction onto the tapered fit. The leg was brought back out of extension and adduction and reduced with traction and internal rotation. Stability was confirmed with no shuck at 90 degrees of external rotation and 30 degrees of extension. No impingement through range of motion arc. Final x-ray images were obtained with fluoroscopy to confirm adequate positioning and no intraoperative fracture. The deep tissues were thoroughly irrigated with Surgiphor, betadine solution. This was allowed to sit in the wound for 3 minutes before being thoroughly irrigated out with normal saline. The capsule was then reapproximated with the previously placed sutures and the indirect head of the rectus was inspected and reapproximated with a #1 Vicryl. The TFL fascia was finally closed with a No. 2 Stratafix, barbed suture. Deep tissues were then reapproximated with 0 Vicryl and a running 2-0 Vicryl. The skin was closed with a running 4-0 Monocryl in a subcuticular fashion. This was reinforced with skin glue. A Mepilex silver dressing was applied. At the end of the case, all counts were correct. Pamela was transferred to the hospital bed without difficulty and suffering no apparent complication. Pamela has a good prognosis. Physical therapy will start today and without restrictions, weight-bearing as tolerated. Aspirin 81mg BID will be used for DVT prophylaxis. Date of Procedure: 05/15/25
--- NOTE | 2025-05-15 11:48 | PT.INIE ---
PT Notes Visit Reasons: Right hip DJD Physical Therapy Day Surgery Initial Evaluation Date: 05/15/2025 Referring Doctor: Cristla Florez NP, Dr. Wynne PT Orders: PT CONSULT: Status post Ortho surgery Precautions: WBAT RLE Patient Profile/Admitting Diagnosis: Pamela is a 65-year-old female presenting status post elective right CHIDI due to osteoarthritis/DJD by Dr. Wynne on 05/15/2025. Postop uncomplicated. PMHX: Depression Shoulder tendinitis Anxiety Hyperlipidemia COVID-19 infection Surgical History (Updated 01/01/25 @ 15:11 by Cristal Florez) Status post tonsillectomy Colonoscopy - MAC (04/12/17) Anxiety Social History/Home Situation: Resides in single-family home with 7 steps to enter. Patient independent with ADLs, ambulation without device, homemaking, meal prep, finances, med management. Patient has been available to assist Equipment Owned/DME: [employer] [facility] Subjective: Pt reports she feels well but tired. Objective: [] General Observation: Female semireclined on stretcher ice to right hip, has been visiting Mental Status: Alert and oriented x 4, able to follow instructions, cooperative, agreeable to participate in evaluation Pain: Right hip 4/10 ROM: [] BUE: WFL Right Lower Extremity: Hip flexion 95 degrees, abduction 15, extension 5 internal rotation to neutral; knee and ankle within normal limits Left Lower Extremity: WNL Strength: [] BUE: 5/5 Right Lower Extremity: Grossly hip 3 -/5, knee 3/5 ankle 3/5 Left Lower Extremity: Grossly 5/5 Sensation: Intact Bed Mobility/Transfers: Supine to sit contact-guard assist Sit to stand supervision with cues for hand placement Stand to sit supervision with cues for hand placement Bed to chair supervision with FWW Gait: Ambulated with FWW 150 feet supervision slight antalgic gait on right Stairs: Two 6 inch steps and three 4 inch steps with rail contact-guard assist step to pattern Balance: [] Static Sitting: Normal Dynamic Sitting: Good Static Standing: Good Dynamic Standing: Fair Special Tests: [] Mobility Limitations Standardized Measure [] [facility] AM-PAC 6 clicks Basic Mobility Inpatient Short Form: [] Raw Score: [] CMS Score: [] Informed Consent/Education: Patient instructed in purpose of PT consult. Packet containing CHIDI exercise protocol has been given to patient. Education and training on initial set of exercises that can be done at home have been completed with patient. Assessment: Patient presents with clinical signs and symptoms consistent with current/admitting diagnoses that have resulted to mobility limitations, gait instability, generalized weakness, and impairment of motor control as demonstrated by the following impairment level findings: 1. Decreased strength to right hip major muscle groups 2. Impaired standing balance 3. Limitation of joint range of motion in right hip 4. Impaired functional activity tolerance 5. Pain right hip Impairments are contributing to the following functional limitations: 1. Inability to safely ambulate without assistive device 2. Increase completion time for mobility ADL performance 3. Increased fall risk 4. Difficulty performing stairs safely independently Patient is assessed as a low complexity based on the following: History: Pamela is a 65-year-old female with impairment level findings, functional limitations, and past medical history as indicated above Examination: Demonstrable impairment in strength, balance, and mobility level with underlying impairments and functional limitations as documented above Presentation: stable Decision Making: low Goals: N/A. PT evaluation and 1-2 treatment sessions only for functional mobility training using recommended AD and for HEP instruction. Plan of Care/Treatment Plan: N/A. PT evaluation and 1-2 treatment session only for functional mobility training using recommended AD and for HEP instruction. DISCHARGE RECOMMENDATIONS: Home with home exercise program and follow-up with Ortho MD as scheduled TREATMENT CODE/TIME: [id number] Thank you for the opportunity to participate in the care of this patient. Please sign an return this page within 30 days if you agree with the above POC. Thank you! Physician Signature Date [facility]
--- NOTE | 2025-05-15 12:12 | W.ANESPOSTOP ---
Postoperative Evaluation Date, Time and Location Date Performed: 05/15/25 Time Performed: 12:12 Patient Location: Day Surgery Unit Vital Signs Most Recent Imported Vital Signs: Most Recent Vital Signs Temp Pulse Resp BP Pulse Ox 36.5 C 68 18 100/63 100 05/15/25 11:07 05/15/25 11:07 05/15/25 11:07 05/15/25 11:07 05/15/25 11:07 Pain Score Most Recent Pain Score: Most Recent Pain Score Pain Level 7 05/15/25 11:07 Assessment Mental Status: Awake (Alert & Oriented to Patient Baseline) Airway and Respiratory Function: Patent airway with normal (patient baseline) respiratory exam Cardiovascular Function: Hemodynamically Stable Hydration Status: Adequately Hydrated Nausea & Vomiting: No Nausea or Vomiting Pain: Pain is Moderate or Severe Postoperative Pain Management: Pain being addressed with medication Peripheral Nerve Block: Patient did not receive a nerve block
== END 2025-05-15 12:21 | disposition home or self-care (01) ==
PROVIDERS: PCP Nurse Practitioner Family; Visit Provider Student in an Organized Health Care Education/Training Program
PROC: (CPT 27130; principal; 2025-05-15 07:30)
DX: M16.11 Unilateral primary osteoarthritis, right hip (principal)
CPT/HCPCS: 20985; 27130; 97161; 73501; C1776; J0690; J1100; J2250; J2371; J2401; J2405; J2704

== ENCOUNTER 2025-05-28 13:37 | Outpatient (CLI) | payer MEDICARE, SELFPAY ==
--- NOTE | 2025-05-28 11:15 | DI.RAD_ITS ---
Exam(s) XR HIP RT COMPLETE AP PELVIS EXAM: XR HIP RT COMPLETE AP PELVIS INDICATION: 1ST POST OP S/P R CHIDI. COMPARISON: CR XR PELVIS AP from 01/01/2025 XA XR HIP RT IN OR from 05/15/2025 TECHNIQUE: 2D digital imaging was performed. Two views. FINDINGS: Stable alignment of total the right hip prosthesis. No abnormal surrounding bony lucencies. Periarticular spurring is again noted in the left knee hip. IMPRESSION: Stable appearance of right hip prosthesis. DATA REPOSITORY: RADIATION DOSE DELIVERED:
== END 2025-05-28 13:38 | disposition home or self-care (01) ==
LOC: DIORS 13:38
PROVIDERS: PCP Nurse Practitioner Family; Visit Provider Student in an Organized Health Care Education/Training Program
DX: Z47.1 Aftercare following joint replacement surgery (principal); Z96.641 Presence of right artificial hip joint
CPT/HCPCS: 99024; 73502

== ENCOUNTER → 2025-06-25 13:17 | Outpatient (BNVA) | payer MEDICARE, SELFPAY | PROVIDERS: PCP Nurse Practitioner Family; Referring Provider Nurse Practitioner Family; Visit Provider Student in an Organized Health Care Education/Training Program | DX: Z47.1 Aftercare following joint replacement surgery (principal); Z96.641 Presence of right artificial hip joint | CPT/HCPCS: 99024 ==

== ENCOUNTER → 2025-09-20 15:14 | Outpatient (BNVA) | payer MEDICARE, SELFPAY | PROVIDERS: PCP Nurse Practitioner Family; Referring Provider Nurse Practitioner Family; Visit Provider Student in an Organized Health Care Education/Training Program | DX: Z47.1 Aftercare following joint replacement surgery (principal); Z96.641 Presence of right artificial hip joint | CPT/HCPCS: 99213 ==